=== PATIENT | male | born 1960 | race Asian ===

== ENCOUNTER 2020-02-19 | Emergency (ER) | payer OTHER ==
[2020-02-19 10:27] LABS: HEMATOCRIT 44.6 % (39.0-50.0); HEMOGLOBIN 14.8 g/dl (14.0-18.0); IMMATURE GRANULOCYTES 0.2 % (0.0-5.0); MEAN CELL VOLUME 87.5 fL CALC (80.0-100.0); MEAN CORPUSCULAR HGB CONC 33.2 g/dL CAL (32.0-36.0); NEUT# 2.34 thou/uL (1.82-7.42); RED BLOOD COUNT 5.1 mill/uL (4.70-6.10); RED CELL DISTRI WIDTH 13.1 % (11.5-15.5)
[2020-02-19 10:45] LABS: ALBUMIN 4.5 g/dL (3.2-5.0); ALKALINE PHOSPHATASE 44 u/l (38-126); ANION GAP 13 (6-22 (CALC)); BILIRUBIN, TOTAL 0.4 mg/dL (0.0-1.4); BUN 19 mg/dL (9-20); BUN/CREATININE RATIO 18 (12-20 (CALC)); CARBON DIOXIDE 25 mmol/l (22-30); CHLORIDE 106 mmol/l (95-108); CREATININE 1.1 mg/dL (0.7-1.3); GFR > 60 ML/MIN (>=60 (CALC)); GFR FOR AFR.AMER. > 60 ML/MIN (>=60 (CALC)); POTASSIUM 4.9 mmol/l (3.5-5.1); SGOT/AST 26 u/l (17-59); SODIUM 140 mmol/l (137-146); TOTAL PROTEIN 7.5 g/dL (6.3-8.2)
[2020-02-19] MEDS ORDERED: COMBIVIR 1501 COMBO PO (11:06)
[2020-02-19] MEDS ORDERED: CRIXIVAN400 MG PO (11:06)
== END 2020-02-19 11:26 | disposition home or self-care (01) | DRG 605 ==
PROVIDERS: Emergency Medicine
DX: S61.230A Puncture wound without foreign body of right index finger without damage to nail, initial encounter (principal); W46.1XXA Contact with contaminated hypodermic needle, initial encounter

== ENCOUNTER 2024-04-25 07:37 | Day surgery (SDC) | payer OTHER ==
[~2024-04-25] VITALS: Ht 162.6 cm; Wt 72.6 kg
[~2024-04-25 07:37] MED LIST: ASPIRIN EC LOW81 MG PO; COMBIVIR 1501 COMBO PO; COMBIVIR OR; CRIXIVAN400 MG OR; CRIXIVAN400 MG PO; FISH OIL1000 MG PO; FLOMAX0.4 M1 OR; LIPITOR10 M1 PO; LORTAB 5 OR; LOSARTAN POT100 MG PO; LOSARTAN POT50 MG PO; NAPROSYN500 MG PO; NEXIUM40 M1 PO; NIASPAN1000 ER OR; PERCOCET 5/325M1 TAB PO; SOLU-MEDROL125 MG IM; TORADOL PO; TRICOR145 MG OR; VITAMIN D35000 UNIT PO; ZOFRAN ODT4 MG OR
[2024-04-25] MEDS ORDERED: SODIUM CHLORIDE 0.9% 10 ML SYR ONE (08:02)
[2024-04-25] MEDS ORDERED: LIDOCAINE MPF 1% (10 MG/ML) 5 ML VIAL ONE (08:59)
[2024-04-25] MEDS ORDERED: BUPIVACAINE HCL PF 0.5 % 50 MG/10 ML SDV ONE (09:00)
[2024-04-25] MEDS ORDERED: MICARDIS80 MG PO (09:22)
[2024-04-25 09:40] VITALS: BP 148/101
== END 2024-04-25 09:05 | disposition home or self-care (01) | DRG 552 ==
LOC: ORM 07:37
PROVIDERS: ATTEND Student in an Organized Health Care Education/Training Program
DX: M47.816 Spondylosis without myelopathy or radiculopathy, lumbar region (principal); G89.4 Chronic pain syndrome; M46.1 Sacroiliitis, not elsewhere classified

== ENCOUNTER 2024-05-16 07:15 | Day surgery (SDC) | payer OTHER ==
[~2024-05-16] VITALS: Ht 162.6 cm; Wt 71.7 kg
[~2024-05-16 07:15] MED LIST changes: +MICARDIS80 MG PO
[2024-05-16] MEDS ORDERED: SODIUM CHLORIDE 0.9% 10 ML SYR ONE (07:22)
[2024-05-16] MEDS ORDERED: BUPIVACAINE HCL PF 0.5 % 50 MG/10 ML SDV ONE (07:48)
[2024-05-16] MEDS ORDERED: LIDOCAINE HCL 1% (10MG/ML) 100 MG/10 ML MDV ONE (07:48)
[2024-05-16 13:28] VITALS: BP 168/108
== END 2024-05-16 09:00 | disposition home or self-care (01) | DRG 552 ==
LOC: ORM 07:15
PROVIDERS: ATTEND Student in an Organized Health Care Education/Training Program
DX: M47.816 Spondylosis without myelopathy or radiculopathy, lumbar region (principal); G89.4 Chronic pain syndrome

== ENCOUNTER 2024-06-27 06:06 | Day surgery (SDC) | payer OTHER ==
[~2024-06-27] VITALS: Ht 162.6 cm; Wt 72.1 kg
[2024-06-27] MEDS ORDERED: SODIUM CHLORIDE 0.9% 10 ML SYR ONE (06:30)
[2024-06-27] MEDS ORDERED: LIDOCAINE HCL 1% (10MG/ML) 100 MG/10 ML MDV ONE (06:52)
[2024-06-27 09:07] VITALS: BP 135/98
== END 2024-06-27 08:20 | disposition home or self-care (01) | DRG 552 ==
LOC: ORM 06:06
PROVIDERS: ATTEND Student in an Organized Health Care Education/Training Program
DX: M47.816 Spondylosis without myelopathy or radiculopathy, lumbar region (principal); G89.4 Chronic pain syndrome; M46.1 Sacroiliitis, not elsewhere classified

== ENCOUNTER 2024-07-11 06:22 | Day surgery (SDC) | payer OTHER ==
[~2024-07-11] VITALS: Ht 162.6 cm; Wt 71.7 kg
[2024-07-11] MEDS ORDERED: LIDOCAINE HCL 1% (10MG/ML) 100 MG/10 ML MDV ONE (08:29)
[2024-07-11 08:49] VITALS: BP 140/92
== END 2024-07-11 08:37 | disposition home or self-care (01) | DRG 552 ==
LOC: ORM 06:22
PROVIDERS: ATTEND Student in an Organized Health Care Education/Training Program
DX: M47.816 Spondylosis without myelopathy or radiculopathy, lumbar region (principal); G89.4 Chronic pain syndrome; M46.1 Sacroiliitis, not elsewhere classified